=== PATIENT | female | born 1960 | race African-American/Black ===

== ENCOUNTER 2017-09-08 06:52 | Emergency (ER) | payer MEDICARE ==
[2017-09-08 08:10] LABS: #Basophils 0.1 thou/uL (0.0-0.2); #Eosinphils 0.3 thou/uL (0.0-0.7); #Lymphocytes 2.1 thou/uL (1.20-3.40); #Monocytes 0.4 thou/uL (0.11-0.59); #Neutrophils 2.4 thou/uL (1.40-6.50); %Basophils 1.7 % (0.0-1.0); %Eosinophils 6.4 % (0.0-10.0); %Lymphocytes 38.7 % (21.0-51.0); %Monocytes 7.9 % (0.0-10.0); %Neutrophils 45.3 % (42.0-75.0); Hemoglobin 13.4 g/dL (12.0-16.0); Mean Corpuscular HGB CONC 32.3 g/dL (32.0-36.0); Mean Corpuscular Hemoglobin 28.1 pg (27.0-31.0); Mean Platelet Volume 7.8 fL (7.4-10.4); Platelet Count 239 thou/uL (130-400); RBC Distribution Width 12.4 % (11.5-14.5); Red Blood Cell (RBC) Count 4.75 mill/uL (4.20-5.40); White Blood Cell (WBC) Count 5.3 thou/uL (4.8-10.8)
[2017-09-08 08:28] LABS: ALT (SGPT) 9 U/L (8-55); AST (SGOT) 11 U/L (5-34); Alkaline Phosphatase 62 U/L (40-150); Anion Gap 9 mmol/L (10-20); BUN (Urea Nitrogen) 14 mg/dL (9.8-20.1); Bilirubin, Total 0.4 mg/dL (0.2-1.2); CKMB 1.2 ng/mL (0-6.6); Calc. Creatinine Clearance 0 mL/min (70-130); Calcium 9.4 mg/dL (7.8-10.44); Carbon Dioxide 31 mmol/L (22-29); Chloride 106 mmol/L (98-107); Estimated GFR-MDRD Greater than 90; Globulin 2.9 g/dL (2.4-3.5); Glucose 85 mg/dL (70-105); Potassium 3.9 mmol/L (3.5-5.1); Protein, Total 6.9 g/dL (6.0-8.3); Sodium 142 mmol/L (136-145); Troponin I Less than 0.010 ng/mL (< 0.028)
--- NOTE | 2017-09-08 08:59 | CT ---
HEAD CT WITHOUT CONTRAST: History: Headache. Pain. Comparison: None. Technique: Noncontrast head CT is performed from skull to skull vertex. FINDINGS: No parenchymal hemorrhage. No extraaxial hematoma. No midline shift. Basilar cisterns are patent. Age appropriate atrophy. Cortical gutiérrez white matter differentiation is preserved. Ventricles and sulci are patent and symmetric. Calvarium is intact. Adequate aeration of the sinuses and mastoid air cells. IMPRESSION: No acute intracranial process. POS: [facility]
[2017-09-08] MEDS ORDERED: Ketorolac Tromethamine 60 MG/2 ML VIAL ONE (09:03)
[2017-09-08] MEDS ORDERED: diphenhydrAMINE 25 MG CAP ONE (09:03)
[2017-09-08] MEDS ORDERED: Metoclopramide HCl 10 MG TAB ONE (09:03)
--- NOTE | 2017-09-08 09:11 | CT ---
CT CERVICAL SPINE WITHOUT CONTRAST: HISTORY: Pain. COMPARISON: None. FINDINGS: The cervical condyles are intact. The odontoid process is intact. The mastoids are clear. Skull base is intact. Lung apices are clear. The thyroid is enlarged. Paraspinal soft tissues are unremarkable. Mild degenerative disk disease at C4-5. IMPRESSION: No acute fracture or malalignment. POS: [facility]
--- NOTE | 2017-09-08 09:14 | RAD ---
UPRIGHT PORTABLE CHEST 1 VIEW: HISTORY: A 56-year-old female with a history of chest pain and severe pain down the right arm with numbness, a lso complains of severe headache. COMPARISON: 11/27/16. FINDINGS: Old granuloma calcifications on the left. Heart size is normal. The lungs are clear. No confluent pneumonia, overt edema, or pleural effusion. IMPRESSION: Old granulomatous disease. Atherosclerosis of the aorta. Stable appearance from prior study. POS: [facility]
[2017-09-08] MEDS ORDERED: Metoclopramide HCl 10 MG TAB PO SCH (09:15)
== END 2017-09-08 10:16 | disposition home or self-care (01) ==
LOC: ERS 06:52
DX: M54.12 Radiculopathy, cervical region (principal); R51 Headache; M62.830 Muscle spasm of back; E11.9 Type 2 diabetes mellitus without complications; I10 Essential (primary) hypertension
CPT/HCPCS: 36415; 70450; 71045; 72125; 80053; 82553; 83880; 84484; 85025; 93005; 96372; J1885

== ENCOUNTER 2020-02-24 08:56 | Outpatient (CLI) | payer OTHER ==
--- NOTE | 2020-02-24 10:05 | RAD ---
RADIOGRAPH LUMBAR SPINE 3 VIEWS: DATE: 02/24/2020 HISTORY: 59-year-old female with lumbar radiculopathy TECHNIQUE: 3 lateral views in flexion, extension, and neutral positions. FINDINGS: For the purposes of this report, it will be assumed that there are 5 lumbar-type vertebrae. Vertebral body heights are maintained. There is multilevel facet DJD, especially at lower levels. L4-5: Grade 1 anterolisthesis of L4 on L5 becomes minimally worse during flexion. L5-S1: Moderate disc space narrowing. Grade 1 anterolisthesis of L5 on S1. No instability. IMPRESSION: Slightly unstable grade 1 spondylolisthesis at L4-5.
== END 2020-02-24 08:57 | disposition home or self-care (01) ==
LOC: BICMRI 08:56 → BICRAD 08:57
PROVIDERS: ATTEND Neurological Surgery
DX: M54.16 Radiculopathy, lumbar region (principal); M43.16 Spondylolisthesis, lumbar region
CPT/HCPCS: 72100

== ENCOUNTER 2020-03-16 10:28 | Outpatient (CLI) | payer OTHER ==
--- NOTE | 2020-03-16 12:01 | RAD ---
LUMBAR SPINE 3 VIEWS: Date: 03/16/2020 PROVIDED CLINICAL HISTORY: Lumbar radiculopathy. FINDINGS: Comparison with 02/24/2020. Five lumbar vertebral bodies are redemonstrated. There is Grade I anterolisthesis of L3 on L4, which increases with flexion and decreases with extension. There is Grade I anterolisthesis of L4 on L5, wi thout apparent abnormal translation motion with flexion and extension. Vertebral body heights appear maintained. Lower lumbar spine facet degenerative changes are seen. IMPRESSION: As above. POS: [facility]
--- NOTE | 2020-03-16 13:05 | MRI ---
MRI LUMBAR SPINE: DATE: 03/16/2020. PROVIDED CLINICAL HISTORY: Lumbar radiculopathy. FINDINGS: Five lumbar vertebral bodies are assumed. Grade I anterolisthesis of L3 on L4 and L4 on L5. Vertebr al body heights appear preserved. No focal concerning regional marrow signal abnormality is evident. The conus medullaris is normal in signal and terminates at an appropriate level. T2 hyperintensiti es are seen involving the right kidney, incompletely characterized on the basis of this study but sta tistically reflecting cysts. At L1-2, there is bilateral facet arthrosis greater right of midline without significant central day l or foraminal narrowing apparent. At L2-3, there is bilateral facet arthrosis without significant central canal or foraminal narrowing apparent. At L3-4, there is a broad-based disk bulge and bilateral facet arthrosis. There is mild-moderate benson tral canal stenosis. There is no mild left foraminal narrowing. There is no significant right nora inal narrowing. At L4-5, there is a broad-based disk bulge and bilateral facet arthrosis. There is moderate central canal stenosis and severe right mild left subarticular narrowing. There is potential for impingement on the traversing right L5 nerve root. There is mild-moderate bilateral foraminal narrowing. At L5-S1, there is a broad-based disk bulge and bilateral facet arthritis. There is mild right subar ticular narrowing. There is no significant central canal stenosis. There is moderate left and mild right foraminal narrowing. IMPRESSION: Lumbar disk and facet degenerative changes producing canal and foraminal narrowing as above. POS: [facility]
== END 2020-03-16 10:29 | disposition home or self-care (01) ==
LOC: TBSIIMAG 10:28
PROVIDERS: ATTEND Neurological Surgery
DX: M47.26 Other spondylosis with radiculopathy, lumbar region (principal); M51.16 Intervertebral disc disorders with radiculopathy, lumbar region; M47.817 Spondylosis without myelopathy or radiculopathy, lumbosacral region; M48.061 Spinal stenosis, lumbar region without neurogenic claudication; M48.07 Spinal stenosis, lumbosacral region; M43.16 Spondylolisthesis, lumbar region
CPT/HCPCS: 72100; 72148

== ENCOUNTER 2020-03-23 14:57 | Outpatient (CLI) | payer MEDICARE ==
--- NOTE | 2020-03-23 16:27 | MMO ---
Bilateral MAMMO Bilat Screen [facility]. CLINICAL HISTORY: Patient is 59 years old and is seen for screening. The patient has the following family history of breast cancer: aunt, x2. The patient has a history of ovarian cancer. VIEWS: The views performed were: bilateral craniocaudal with tomosynthesis and bilateral mediolateral oblique with tomosynthesis. FILMS COMPARED: The present examination has been compared to prior imaging studies performed at [facility] on 09/07/2016, and at [facility] on 05/28/2013. This study has been interpreted with the assistance of computer-aided detection. MAMMOGRAM FINDINGS: There are scattered fibroglandular densities. There are no suspicious masses, suspicious calcifications, or new areas of architectural distortion. IMPRESSION: THERE IS NO MAMMOGRAPHIC EVIDENCE OF MALIGNANCY. A ROUTINE FOLLOW-UP MAMMOGRAM IN 1 YEAR IS RECOMMENDED. THE RESULTS OF THIS EXAM WERE SENT TO THE PATIENT. ACR BI-RADS Category 1 - Negative MAMMOGRAPHY NOTE: 1. A negative mammogram report should not delay a biopsy if a dominant of clinically suspicious mass is present. 2. Approximately 10% to 15% of breast cancers are not detected by mammography. 3. Adenosis and dense breasts may obscure an underlying neoplasm. Reported by: GALA NOE MD Electonically Signed: [id number]
== END 2020-03-23 14:58 | disposition home or self-care (01) ==
LOC: BICMAMMO 14:57
PROVIDERS: ATTEND Emergency Medicine
DX: Z12.31 Encounter for screening mammogram for malignant neoplasm of breast (principal); Z85.43 Personal history of malignant neoplasm of ovary; Z80.3 Family history of malignant neoplasm of breast
CPT/HCPCS: 77063; 77067

== ENCOUNTER 2022-05-19 09:17 | Emergency (ER) | payer OTHER ==
[2022-05-19] MEDS ORDERED: Acetaminophen 500 MG TAB ONE (10:28)
== END 2022-05-19 10:31 | disposition home or self-care (01) ==
LOC: ERS 09:17
DX: M62.830 Muscle spasm of back (principal); E11.9 Type 2 diabetes mellitus without complications; I10 Essential (primary) hypertension; V89.2XXA Person injured in unspecified motor-vehicle accident, traffic, initial encounter; Y92.410 Unspecified street and highway as the place of occurrence of the external cause
CPT/HCPCS: 99283

== ENCOUNTER 2022-06-30 09:00 | Outpatient (CLI) | payer OTHER | END 2022-06-30 09:01 | disposition home or self-care (01) | LOC: BICMAMMO 09:00 | PROVIDERS: ATTEND Student in an Organized Health Care Education/Training Program | DX: Z12.31 Encounter for screening mammogram for malignant neoplasm of breast (principal); R92.1 Mammographic calcification found on diagnostic imaging of breast; Z85.43 Personal history of malignant neoplasm of ovary; Z91.89 Other specified personal risk factors, not elsewhere classified; Z80.3 Family history of malignant neoplasm of breast | CPT/HCPCS: 77063; 77067 ==

== ENCOUNTER 2023-04-20 12:36 | Outpatient (CLI) | payer OTHER | END 2023-04-20 12:37 | disposition home or self-care (01) | LOC: RAD 12:36 | PROVIDERS: ATTEND Student in an Organized Health Care Education/Training Program | DX: K21.00 Gastro-esophageal reflux disease with esophagitis, without bleeding (principal); R63.30 Feeding difficulties, unspecified | CPT/HCPCS: 74230 ==

== ENCOUNTER 2023-06-02 10:44 | Outpatient (CLI) | payer OTHER ==
[2023-06-02] MEDS ORDERED: E-Z-HD 98% W/W 340GM BOT (x-ray ONLY) ONE (10:58)
[2023-06-02] MEDS ORDERED: Barium Sulfate 96% 176 GM BOT (xray ONLY) PO ONE (10:58)
== END 2023-06-02 10:45 | disposition home or self-care (01) ==
LOC: RAD 10:44
PROVIDERS: ATTEND Student in an Organized Health Care Education/Training Program
DX: R05.9 Cough, unspecified (principal); Z98.890 Other specified postprocedural states
CPT/HCPCS: 74220

== ENCOUNTER 2023-06-16 17:00 | Outpatient (CLI) | payer OTHER | END 2023-06-16 17:01 | disposition home or self-care (01) | LOC: SLEEPLAB 17:00 | PROVIDERS: ATTEND Student in an Organized Health Care Education/Training Program | DX: G47.33 Obstructive sleep apnea (adult) (pediatric) (principal); E11.9 Type 2 diabetes mellitus without complications; E66.9 Obesity, unspecified; I10 Essential (primary) hypertension; R06.83 Snoring; G47.10 Hypersomnia, unspecified; G47.00 Insomnia, unspecified; Z68.41 Body mass index [BMI] 40.0-44.9, adult | CPT/HCPCS: 95810 ==

== ENCOUNTER 2023-10-10 14:15 | Outpatient (CLI) | payer OTHER | END 2023-10-10 14:16 | disposition home or self-care (01) | LOC: MRI 14:15 | PROVIDERS: ATTEND Pediatrics | DX: M17.12 Unilateral primary osteoarthritis, left knee (principal); S83.282A Other tear of lateral meniscus, current injury, left knee, initial encounter; S83.242A Other tear of medial meniscus, current injury, left knee, initial encounter; S83.512A Sprain of anterior cruciate ligament of left knee, initial encounter; M25.462 Effusion, left knee; M71.22 Synovial cyst of popliteal space [Baker], left knee ==

== ENCOUNTER 2024-11-22 14:53 | Outpatient (CLI) | payer MEDICARE | END 2024-11-22 14:54 | disposition home or self-care (01) | LOC: BICMAMMO 14:53 | PROVIDERS: ATTEND Student in an Organized Health Care Education/Training Program | DX: Z12.31 Encounter for screening mammogram for malignant neoplasm of breast (principal); Z80.3 Family history of malignant neoplasm of breast; Z85.43 Personal history of malignant neoplasm of ovary | CPT/HCPCS: 77063; 77067 ==